=== PATIENT | male | born 1975 | race Caucasian/White ===

== ENCOUNTER 2023-02-16 08:14 | Day surgery (SDC) | payer OTHER ==
[2023-02-15 11:07] VITALS: BMI 32.3
[2023-02-16] MEDS ORDERED: PROPOFOL 40 ML ONE (09:51)
[2023-02-16] MEDS ORDERED: Lidocaine 1% PF 5 ML VIAL ONE (09:51)
== END 2023-02-16 10:47 | disposition home or self-care (01) ==
LOC: CSHSDC 08:14
PROVIDERS: ATTEND Internal Medicine Gastroenterology
PROC: 0DJD8ZZ Inspection of Lower Intestinal Tract, Via Natural or Artificial Opening Endoscopic (ICD-10-PCS; principal; 2023-02-16)
DX: K62.5 Hemorrhage of anus and rectum (principal); R19.7 Diarrhea, unspecified; I10 Essential (primary) hypertension; E66.9 Obesity, unspecified; K64.4 Residual hemorrhoidal skin tags; Z68.32 Body mass index [BMI] 32.0-32.9, adult; Z88.8 Allergy status to other drugs, medicaments and biological substances
CPT/HCPCS: J2704